=== PATIENT | female | born 1950 | race Caucasian/White ===

== ENCOUNTER → 2022-11-21 | Outpatient (CLI) | payer MEDICARE | END | disposition home or self-care (01) | LOC: RESCLI 11:08 | PROVIDERS: ATTEND Internal Medicine | DX: I48.21 Permanent atrial fibrillation (principal); I10 Essential (primary) hypertension; M85.88 Other specified disorders of bone density and structure, other site; G47.30 Sleep apnea, unspecified; E78.5 Hyperlipidemia, unspecified; F32.A Depression, unspecified; Z82.49 Family history of ischemic heart disease and other diseases of the circulatory system; Z98.890 Other specified postprocedural states; Z79.899 Other long term (current) drug therapy ==